=== PATIENT | male | born 1960 | race Caucasian/White ===

== ENCOUNTER 2018-07-13 01:20 | Emergency (ER) | payer SELFPAY ==
[~2018-07-13] VITALS: Ht 180.3 cm; Wt 83.9 kg
== END 2018-07-13 03:10 | disposition home or self-care (01) ==
LOC: ED 01:20
PROC: 0HQ1XZZ Repair Face Skin, External Approach (ICD-10-PCS; principal; 2018-07-13)
DX: S02.2XXA Fracture of nasal bones, initial encounter for closed fracture (principal); S01.81XA Laceration without foreign body of other part of head, initial encounter; W01.198A Fall on same level from slipping, tripping and stumbling with subsequent striking against other object, initial encounter; F17.200 Nicotine dependence, unspecified, uncomplicated
CPT/HCPCS: 12014; 70450; 70486; 90471; 90715; 99283-25